=== PATIENT | male | born 2000 | race Caucasian/White ===

== ENCOUNTER 2025-03-12 18:41 | Emergency (ER) | payer OTHER ==
[~2025-03-12] VITALS: Ht 170.2 cm; Wt 75.0 kg
[2025-03-12] MEDS: ACETAMINOPHEN *IV* 1,000 MG in IV 1 EA IV ONE (21:04)
[2025-03-12] MEDS: KETOROLAC 30 MG/ML 1 ML VIAL IV ONE (21:04)
[2025-03-12] MEDS: NS (Normal Saline) 0.9% 1,000 ML IV ONE (21:05)
[2025-03-12] MEDS: NEOSPORIN OINT 0.9 GM PKT TOP ONE (21:05)
[2025-03-12 21:45] VITALS: O2SAT 97
[2025-03-12 21:54] VITALS: BP 110/54; TEMP 98.7
== END 2025-03-12 22:02 | disposition home or self-care (01) ==
LOC: EDBD 18:41 → M ED 18:41
DX: S06.0X0A Concussion without loss of consciousness, initial encounter (principal); S80.01XA Contusion of right knee, initial encounter; S80.02XA Contusion of left knee, initial encounter; S20.91XA Abrasion of unspecified parts of thorax, initial encounter; V23.49XA Other motorcycle driver injured in collision with car, pick-up truck or van in traffic accident, initial encounter; M70.42 Prepatellar bursitis, left knee; F43.10 Post-traumatic stress disorder, unspecified; Y92.410 Unspecified street and highway as the place of occurrence of the external cause; Y93.89 Activity, other specified; Y99.9 Unspecified external cause status
CPT/HCPCS: 70450; 71250; 72125; 73560; 73600; 96365; 96375; 99284; J0131; J1885